=== PATIENT | male | born 1970 | race Two or more races ===

== ENCOUNTER 2019-12-25 09:38 | Day surgery (SDC) | payer OTHER ==
--- NOTE | 2019-12-20 16:59 | Diagnostic Imaging Report ---
Indication: Cough Technique: 2 views of the chest Comparison: None Findings: Lungs and pleural spaces are clear. The heart size is normal. There are mild degenerative changes of the thoracic spine. No significant interim change. Impression: Negative
[~2019-12-25] VITALS: Ht 180.3 cm; Wt 121.1 kg
[2019-12-25] VITALS (11 sets, daily range): BP systolic 99–117; BP diastolic 50–68
--- NOTE | 2019-12-25 06:55 | Pre-Procedure Note/Attestation ---
Pre-Procedure Note/Attestation Complete Prior to Procedure Planned Procedure: right Procedure Narrative: rt knee scope, medial meniscectomy and chondroplasty Indications for Procedure Pre-Operative Diagnosis: rt knee medial meniscus tear Attestation I attest that I discussed the nature of the procedure; its benefits; risks and complications; and alternatives (and the risks and benefits of such alternatives ), prior to the procedure, with the patient (or the patient's legal outside sales representative insurance). I attest that, if there was a reasonable possibility of needing a blood transfusion, the patient (or the patient's legal outside sales representative insurance) was given the [facility] standardized written summary, pursuant to the Swapnil Patricia Blood Safety Act ([place] Health and Safety Code # 1645, as amended). I attest that I re-evaluated the patient just prior to the surgery and that there has been no change in the patient's H&P, except as documented below: none Kenneth Pyle MD Dec 25, 2019 06:55
[~2019-12-25 09:38] MED LIST: Clindamycin 600mg/D5W 50ml IV ONE; celeBREX 200mg Cap **SURGERY PATIENTS ONLY ORAL ONE; oxyCONTIN 20mg tab ORAL ONE
[2019-12-25] MEDS ORDERED: oxyCONTIN 20mg tab ORAL ONE (10:27)
[2019-12-25] MEDS ORDERED: celeBREX 200mg Cap **SURGERY PATIENTS ONLY ORAL ONE (10:27)
[2019-12-25] MEDS ORDERED: HYDROmorphone 1mg/ml Carpuject SUBQ PRN (10:45)
[2019-12-25] MEDS ORDERED: Tylenol #3 tab (300mg/30mg) ORAL PRN (10:45)
[2019-12-25] MEDS ORDERED: D5 1/2NS 1,000 ML IV SCH (10:45)
[2019-12-25] MEDS ORDERED: HYDROcodone/Acetamin 5/325 tab ORAL PRN ×2 (10:45→11:45)
[2019-12-25] MEDS ORDERED: METFORMIN HCL1000 M1 ORAL (11:09)
[2019-12-25] MEDS ORDERED: ATORVASTATIN CA40 MG ORAL (11:12)
[2019-12-25] MEDS ORDERED: LISINOPRIL40 MG ORAL (11:20)
[2019-12-25] MEDS ORDERED: fenofibrate PO (11:22)
[2019-12-25] MEDS ORDERED: Jardiance PO (11:23)
[2019-12-25] MEDS ORDERED: FISH OIL CAP1000 MG ORAL (11:24)
[2019-12-25] MEDS ORDERED: ASPIR 8181 MG ORAL (11:24)
[2019-12-25] MEDS ORDERED: Bupivacaine w/Epi 0.5% 30ml Vial INJ ONE (11:28)
[2019-12-25] MEDS ORDERED: LR 1000ml ONE (11:30)
[2019-12-25] MEDS ORDERED: Sterile Water Irrig 1000ml IRRIG ONE (11:30)
[2019-12-25] MEDS ORDERED: LR 1000ml 1,000 ML IVLG SCH (11:35)
--- NOTE | 2019-12-25 11:36 | Anethesia Preoperative Eval ---
Anesthesia Pre-op PMH/ROS General Date of Evaluation: Dec 25, 2019 Time of Evaluation: 11:37 Anesthesiologist: Shailesh ASA Score: ASA 3 Mallampati Score Class I : Soft palate, uvula, fauces, pillars visible Class II: Soft palate, uvula, fauces visible Class III: Soft palate, base of uvula visible Class IV: Only hard plate visible Mallampati Classification: Class II Surgeon: Lashanda Diagnosis: R Knee Pain Surgical Procedure: R Knee Arthroscopy Family History: no anesthesia problems Allergies: Coded Allergies: No Known Allergies (Unverified , 12/20/19) Medications: see eMAR Patient NPO?: Yes Past Medical History Cardiovascular: Reports: HTN, other Endocrine: Reports: DM Other: obesity - BMI 39 PSxH Narrative: L Knee Arthroscopy, Cervical and Lumbar Fusion Sxs Anesthesia Pre-op Phys. Exam Physician Exam Last Vital Signs Date Time Temp Pulse Resp B/P (MAP) Pulse Ox O2 Delivery O2 Flow Rate FiO2 12/25/19 10:59 Room Air 12/25/19 10:51 97.2 66 20 117/65 99 Constitutional: NAD Neurologic: CN 2-12 intact Cardiovascular: RRR Respiratory: CTA Gastrointestinal: S/NT/ND Airway Exam Mallampati Score: Class II MO: full ROM: limited Teeth: intact Anesthesia Pre-op A/P Risk Assessment & Plan Assessment: ASA 3 Plan: GA, SED Status Change Before Surgery: No Pre-Antibiotics Dru Grams Ancef IV Given Within 1 Hr of Incision: Yes Time Given: 11:46 Dimas Cash MD Dec 25, 2019 11:36
[2019-12-25] MEDS ORDERED: Sodium Chloride 10ml vial INJ ONE (11:37)
[2019-12-25] MEDS ORDERED: Propofol 200mg/20ml IV ONE (11:37)
[2019-12-25] MEDS ORDERED: Lidocaine 1% MPF 10mg/ml 5ml ONE (11:37)
[2019-12-25] MEDS ORDERED: oxyCODONE HCL/Acetaminophen 5/325mg ORAL PRN (11:45)
[2019-12-25] MEDS ORDERED: Metoclopramide 10mg/2ml Inj IVP PRN (11:45)
[2019-12-25] MEDS ORDERED: LORazepam Inj 2mg/ml 1ml IV PRN (11:45)
[2019-12-25] MEDS ORDERED: Midazolam 2mg/2ml Inj IVP PRN (11:45)
[2019-12-25] MEDS ORDERED: fentaNYL 100 mcg/2 mL IV PRN (11:45)
[2019-12-25] MEDS ORDERED: Meperidine 25mg/0.5ml Inj (FOR RIGORS ONLY) IV PRN (11:45)
[2019-12-25] MEDS ORDERED: HYDROcodone/Acetamin 7.5/325 tab ORAL PRN (11:45)
[2019-12-25] MEDS ORDERED: Hydromorphone 0.5mg/0.5ml inj IVP PRN (11:45)
[2019-12-25] MEDS ORDERED: Ketorolac 30mg Inj IV PRN ×2 (11:45)
[2019-12-25] MEDS ORDERED: Atropine Sulfate 0.4mg/ml inj IVP PRN (11:45)
[2019-12-25] MEDS ORDERED: Acetaminophen (Non formulary) 100 ML IV ONE (11:45)
[2019-12-25] MEDS ORDERED: DiphenhydrAMINE 50mg/ml Inj IVP PRN (11:45)
[2019-12-25] MEDS ORDERED: Labetalol 5mg/ml 20ml vial IV PRN (11:45)
[2019-12-25] MEDS ORDERED: NS Irrig 4000ml IRRIG ONE ×3 (12:08→12:19)
--- NOTE | 2019-12-25 12:09 | Immediate Post-Op Evaluation ---
Immediate Post-Op Evalulation Immediate Post-Op Evalulation Procedure: R Knee Arthroscopy Date of Evaluation: Dec 25, 2019 Time of Evaluation: 12:58 IV Fluids: 600 LR Blood Products: 0 Estimated Blood Loss: 7 Urinary Output: 0 Blood Pressure Systolic: 109 Blood Pressure Diastolic: 61 Pulse Rate: 68 Respiratory Rate: 16 O2 Sat by Pulse Oximetry: 99 Temperature (Fahrenheit): 97.4 Pain Score (1-10): 2 Nausea: No Vomiting: No Complications 0 Patient Status: awake, reacts, patent, none Hydration Status: adequate Dru Gram Ancef IV Given Within 1 Hr of Incision: Yes Time Given: 11:46 Dimas Cash MD Dec 25, 2019 12:09
--- NOTE | 2019-12-25 12:10 | 48 Hour Post Anesthesia Eval ---
Post Anesthesia Evaluation Procedure: R Knee Arthroscopy Date of Evaluation: Dec 25, 2019 Time of Evaluation: 15:23 Blood Pressure Systolic: 111 0: 61 Pulse Rate: 67 Respiratory Rate: 18 Temperature (Fahrenheit): 98 O2 Sat by Pulse Oximetry: 99 Airway: patent Nausea: No Vomiting: No Pain Intensity: 2 Hydration Status: adequate Cardiopulmonary Status: Stable Mental Status/LOC: patient returned to baseline Follow-up Care/Observations: 0 Post-Anesthesia Complications: 0 Follow-up care needed: ready to discharge Dimas Cash MD Dec 25, 2019 12:10
--- NOTE | 2019-12-25 12:37 | Brief Operative Note ---
Immediate Post Operative Note Operative Note Chief Complaint: rt knee pain Pre-op Diagnosis: rt knee medial meniscus tear Procedure: rt knee scope, lateral and medial meniscectomy Post-op Diagnosis: same as pre-op Findings: consistent w/pre-op dx studies Surgeon: md shaniqua Head Of Maintenance: karine guy Anesthesiologist: md lacy Anesthesia: general Specimen: none Complications: none Condition: stable Fluids: ns Estimated Blood Loss: minimal Drains: none Implant(s) used?: No Kenneth Pyle MD Dec 25, 2019 12:37
--- NOTE | 2019-12-25 17:15 | Operative Note - Dictated ---
DATE OF OPERATION: 12/25/2019 PREOPERATIVE DIAGNOSIS: Right knee posterior horn medial meniscus tear. POSTOPERATIVE DIAGNOSES: 1. Right knee free edge tear of the lateral meniscus involving 15% of the posterior horn body lateral meniscus. 2. Right knee complex tear of the posterior horn body of the medial meniscus involving 25% of the medial meniscus. 3. Right knee small area of chondral damage with chondral flap over the medial femoral condyle measuring 5 x 8 mm. PROCEDURE: 1. Right knee arthroscopy and extensive intra-articular shaving. 2. Right knee partial lateral meniscectomy involving 15% of the posterior horn body of the lateral meniscus. 3. Right knee partial medial meniscectomy involving 25% of the posterior horn body of the medial meniscus. 4. Right knee medial femoral chondroplasty. SURGEON: Kenneth Pyle M.D. GRANITE BLOCK PAVER: Osiris Alford PA-C. Enterprise Data Architect was present during the actual operative portion of the case and was important and essential part of the operation. During the operation, the oral surgery assistant held and operated the arthroscopic camera for visualization, assisted by manipulating the leg to help with visualization, and helped with essential parts of the repair process as necessary such as operating surgical instruments under surgeon supervision, suture management, and wound closures. ANESTHESIOLOGIST: Dimas Cash M.D. ANESTHESIA: General LMA anesthesia. TOURNIQUET TIME: 25 minutes. EBL: Minimal. COMPLICATIONS: None. SURGICAL INDICATION: The patient is a 49-year-old male, who sustained the above injury to his knee. The patient was treated non-operative initially, but this did not alleviate the patients symptoms. Therefore, after discussing all non-surgical and surgical options, and discussing all foreseeable risk and benefits of surgery, the patient opted for surgical treatment as described above. PATIENT POSITIONING: Patient was brought to the operating room table and placed supine. All pressure points were well padded. General Anesthesia was induced and a well padded tourniquet was placed on the thigh. The lateral post was placed and positioned to allow for opening of the medial compartment of the knee without placing pressure over the fibular head. Patients entire leg was prepped and draped in the usual sterile fashion. Time-out was performed and preop abx was given and after exsanguinating the lower extremity, the tourniquet was inflated to 275 mm of mercury. EXAMINATION OF THE KNEE UNDER ANESTHESIA: Before prepping and draping the knee and while the patient was relaxed under general anesthesia, the knee was examined for ROM, and anterior and posterior, medial and lateral, posterolateral, and posteromedial instability. Pivot shift testing was performed. There was no evidence of loss of motion or instability and the pivot shift testing was negative. PORTAL PLACEMENT: The lateral portal was placed with the knee flexed to 90 degrees at the level of inferior border of the patella in line with the lateral border of the patella. A cm skin incision was made with an eleven blade, and using a blunt obturator, the capsule was gently penetrated. Sterile saline solution was then infused inside the knee with the aid of a pump set at 35 mm mercury pressure. Under direct visualization, placement of the medial portal was preliminary judged using a spinal needle, and it was subsequently established using the same technique as the lateral portal. Care was given not to injure the cutaneous branches of the medial Saphenous nerve or the subcutaneous veins. DIAGNOSTIC ARTHROSCOPY: The suprapatellar patellar pouch was visualized. There was no evidence of scar tissue or loose fragments. The medial and lateral patellar facets and trochlear groove articular cartilage was visualized. These structures were intact and were devoid of any articular cartilage damage. The medial plica shelf and the corresponding medial femoral condyle articular cartilage were visualized. There was no significantly thickening of the medial plica shelf and there were no kissing? lesion over the medial femoral condyle. The lateral gutter and the posterolateral corner of the knee were visualized. There were no loose bodies, and the popliteus tendon and other structures of the posterolateral corner of the knee were intact intra-articularly. At this point, the knee was placed in the figure of four position and the lateral compartment was entered. The lateral femoral condyle, lateral tibial plateau, and the anterior, body, and the posterior horn of the lateral meniscus were visualized and probed. The articular surfaces were intact and devoid of articular cartilage damage. There was a free edge tear of the posterior horn and body lateral meniscus with some frayed meniscus at the periphery. This involve 15% of the lateral meniscus. The knee was then placed at 90 degree and the ACL and PCL were visualized and probed. The ACL was completely intact on visualization and probing, and it had excellent tension. The PCL was completely intact on visualization and probing and it had excellent tension. The medial compartment was then entered and the medial femoral condyle, medial tibial plateau, and the anterior, body, and the posterior horn of the medial meniscus were visualized and probed. There was a small condyle damage over the lateral portion of the medial femoral condyle in the weightbearing zone measuring 5 x 8 mm with unstable chondral flaps. There was a complex tear of the posterior horn and body of the medial meniscus involving 25% medial meniscus. The medial gutter was visualized. There was no evidence of defect or loose fragments. The scope was then brought back to the patella femoral compartment. OPERATIVE ARTHROSCOPY: At this point, all loose debris and fragments were removed with the use of suction motorized shaver. Specific attention was given to assure all visible loose fragments were irrigated out of the knee joint with pump inflow and cannula outflow system. For lateral meniscectomy: At this point, attention was given to the lateral meniscus. Using combination of baskets and roopa, the torn portion of the lateral meniscus was removed. Attention was given to remove all displaced and unstable portion of the lateral meniscus while maintaining as much of the functional portion of the meniscus as possible. Approximately, 15% of the posterior horn body of the meniscus was removed in this fashion. The transition between the meniscectomy portion and intact portion of the meniscus was smoothed out with combination of small baskets and roopa. Excellent transition zone was obtained in this fashion. For medial meniscectomy: At this point, attention was given to the medial meniscus. Using combination of baskets and roopa, the torn portion of the medial meniscus was removed. Attention was given to remove all displaced and unstable portion of the medial meniscus while maintaining as much of the functional portion of the meniscus as possible. Approximately, 25% of the posterior horn and body of the medial meniscus was removed in this fashion. The transition between the meniscectomy portion and intact portion of the meniscus was smoothed out with combination of small baskets and roopa. Excellent transition zone was obtained in this fashion. For medial compartment chondroplasty: Care was given to the area of cartilage damage in the medial compartment. The frayed and loose fragments of articular cartilage were debrided using a motorized shaver. Suction was used to pull in the loose fragments and flaps of the cartilage and to minimize damage to the intact and well attached portion of the cartilage. This allowed for smooth surfaces for the articular cartilage. CONDITION AT DISCHARGE FROM OPERATING ROOM: The knee was irrigated with copious amount of normal saline at the end of the procedure. The scope was removed and the water was drained. The skin edges were re-approximated and sterile dressing was applied. All lap count and instrument counts were correct. The patient tolerated the procedure well without complications and was taken to the recovery room in stable conditions. Kenneth Pyle M.D. DR: BONG JOB#: [id number] CC:
== END 2019-12-25 14:29 | disposition home or self-care (01) ==
LOC: SUR 09:38
DX: S83.241A Other tear of medial meniscus, current injury, right knee, initial encounter (principal); S83.281A Other tear of lateral meniscus, current injury, right knee, initial encounter; X58.XXXA Exposure to other specified factors, initial encounter; Y92.9 Unspecified place or not applicable; E11.9 Type 2 diabetes mellitus without complications; I10 Essential (primary) hypertension; Z98.1 Arthrodesis status; Z68.37 Body mass index [BMI] 37.0-37.9, adult
CPT/HCPCS: 29880; 71046; 82962; J0131; J0690; J1885; J2250; J2405; J2704; J3010; J7120; 94003; 94150

== ENCOUNTER 2020-09-23 06:59 | Inpatient (IN) | payer OTHER ==
[2020-09-23] VITALS (15 sets, daily range): BP systolic 96–135; BP diastolic 42–78
[~2020-09-23] VITALS: Ht 180.3 cm; Wt 113.4 kg
[~2020-09-23 06:59] MED LIST changes: +ASPIR 8181 MG ORAL; +ATORVASTATIN CA40 MG ORAL; -Clindamycin 600mg/D5W 50ml IV ONE; +FISH OIL CAP1000 MG ORAL; +Jardiance PO; +LISINOPRIL40 MG ORAL; +METFORMIN HCL1000 M1 ORAL; +NAPROXEN500 M2 ORAL; +TRAZODONE HCL300 MG ORAL; -celeBREX 200mg Cap **SURGERY PATIENTS ONLY ORAL ONE; +fenofibrate PO; -oxyCONTIN 20mg tab ORAL ONE
[2020-09-23] MEDS ORDERED: ceFAZolin sod 1 GM in NS 55 ML IVPB ONE (07:00)
[2020-09-23] MEDS ORDERED: ePHEDrine 50mg/ml Inj ONE (07:33)
[2020-09-23] MEDS ORDERED: Sodium Chloride 10ml vial INJ ONE ×2 (07:33→10:38)
[2020-09-23] MEDS ORDERED: Rocuronium Bromide 50mg/5ml Inj IV ONE ×2 (08:11→10:44)
[2020-09-23] MEDS ORDERED: Succinylcholine 20mg/ml 10ml vial ONE ×2 (08:11→10:44)
[2020-09-23] MEDS ORDERED: propofoL 1,000mg/100ml IV ONE (08:30)
[2020-09-23] MEDS ORDERED: LR 1000ml ONE (08:30)
[2020-09-23] MEDS ORDERED: Sterile Water Irrig 1000ml IRRIG ONE (08:30)
[2020-09-23] MEDS ORDERED: NS Irrig 3000ml IRRIG ONE (08:30)
[2020-09-23] MEDS ORDERED: EPINEPHrine 1mg/1ml Amp ONE (08:45)
[2020-09-23] MEDS ORDERED: Midazolam 2mg/2ml Inj ONE (08:46)
[2020-09-23] MEDS ORDERED: fentaNYL 100 mcg/2 mL IV ONE ×2 (08:46→16:54)
[2020-09-23] MEDS ORDERED: Thrombin 5000 units TOPIC ONE (08:46)
[2020-09-23] MEDS ORDERED: Bupivacaine 0.5% Inj 30 ml vial INJ ONE (08:47)
[2020-09-23] MEDS ORDERED: Bacitracin 50000 Units Vial ONE ×2 (08:47→17:19)
[2020-09-23] MEDS ORDERED: Lidocaine 1%/ 10mg/ml/EPI 0.01mg/ml 20ml INJ ONE (08:47)
[2020-09-23] MEDS ORDERED: Gelfoam Size TOPIC ONE ×2 (08:47→09:10)
[2020-09-23] MEDS ORDERED: Lidocaine 1% MPF 10mg/ml 5ml ONE (08:47)
[2020-09-23] MEDS ORDERED: Vancomycin 1gm vial IVPB ONE (08:48)
[2020-09-23] MEDS ORDERED: Heparin 5000 units/ml inj ONE (08:48)
[2020-09-23] MEDS ORDERED: Ropivacaine 5mg/ml Vial 30ml INJ ONE (09:10)
--- NOTE | 2020-09-23 09:37 | Pre-Procedure Note/Attestation ---
Pre-Procedure Note/Attestation Complete Prior to Procedure Procedure Narrative: L3-4-5-S1 Ant post fusion with redo decompression Indications for Procedure Pre-Operative Diagnosis: L3-S1 discopathy, deformity and stenosis Attestation I attest that I discussed the nature of the procedure; its benefits; risks and complications; and alternatives (and the risks and benefits of such alternatives), prior to the procedure, with the patient (or the patient's legal jewelry sales representative). I attest that, if there was a reasonable possibility of needing a blood transfusion, the patient (or the patient's legal jewelry sales representative) was given the [facility] standardized written summary, pursuant to the Swapnil Patricia Blood Safety Act ([place] Health and Safety Code # 1645, as amended). I attest that I re-evaluated the patient just prior to the surgery and that there has been no change in the patient's H&P, except as documented below: Hao Greene MD Sep 23, 2020 09:37
[2020-09-23] MEDS ORDERED: Acetaminophen (Non formulary) 100 ML IV ONE (10:30)
--- NOTE | 2020-09-23 10:34 | Anethesia Preoperative Eval ---
Anesthesia Pre-op PMH/ROS General Date of Evaluation: Sep 23, 2020 Time of Evaluation: 08:50 Anesthesiologist: Antonio ASA Score: ASA 3 Mallampati Score Class I : Soft palate, uvula, fauces, pillars visible Class II: Soft palate, uvula, fauces visible Class III: Soft palate, base of uvula visible Class IV: Only hard plate visible Mallampati Classification: Class II Surgeon: Ramona Diagnosis: Lumbar radiculopathy Surgical Procedure: Anterior and posterior discectomy fusion L3 to S1 Anesthesia History: none Family History: no anesthesia problems Allergies: Coded Allergies: No Known Allergies (Unverified , 12/20/19) Medications: see eMAR Patient NPO?: Yes Past Medical History Cardiovascular: Reports: HTN; Denies: CAD, LA, valve dz, arrhythmia, other Pulmonary: Denies: asthma, COPD, MARIA DE JESUS, other Gastrointestinal/Genitourinary: Reports: GERD; Denies: CRI, ESRD, other Neurologic/Psychiatric: Reports: depression/anxiety, other - chronic pain; Denies: dementia, CVA, TIA Endocrine: Reports: DM - stable on pills; Denies: hypothyroidism, steroids, other HEENT: Denies: cataract (L), cataract (R), glaucoma, MINTO (L), MINTO (R), other Hematology/Immune: Denies: anemia, DVT, bleeding disorder, other Musculoskeletal/Integumentary: Denies: OA, RA, DJD, DDD, edema, other Other: obesity PMH Narrative: as above PSxH Narrative: Lumbar laminectomy cervical spine fusion Anesthesia Pre-op Phys. Exam Physician Exam Last Vital Signs Date Time Temp Pulse Resp B/P (MAP) Pulse Ox O2 Delivery O2 Flow Rate FiO2 09/23/20 08:08 98.2 67 18 108/71 (83) 96 Constitutional: NAD Neurologic: CN 2-12 intact Cardiovascular: RRR, no M/R/G Respiratory: CTA Gastrointestinal: S/NT/ND Airway Exam Mallampati Score: Class III MO: limited Neck: stiff ROM: limited Teeth: intact Dentures: no upper, no lower Anesthesia Pre-op A/P Labs Chemistry Test 09/23/20 08:22 POC Whole Blood Glucose 110 MG/DL (74-106) H Studies Pre-op Studies: EKG - NSR Risk Assessment & Plan Assessment: ASA 3 Plan: GA with ETT, supine and prone position, neuromonitoring Status Change Before Surgery: No Pre-Antibiotics Drug: Ancef 2gr Given Within 1 Hr of Incision: Yes Time Given: 10:02 Krunal Alvarez MD Sep 23, 2020 10:34
[2020-09-23] MEDS ORDERED: Morphine Sulfate 10mg/ml Inj ONE (10:38)
[2020-09-23] MEDS ORDERED: Hydromorphone 0.5mg/0.5ml inj IVP PRN ×2 (11:45→16:45)
[2020-09-23] MEDS ORDERED: Chloraseptic Spray 20mL Bottle ORAL PRN (11:45)
[2020-09-23] MEDS ORDERED: Neostigmine 1mg/ml 10ml Inj ONE (14:15)
[2020-09-23] MEDS ORDERED: Glycopyrrolate 0.2mg/ml 1ml Vial ONE (14:15)
[2020-09-23] MEDS ORDERED: Ketorolac 30mg Inj ONE (14:18)
--- NOTE | 2020-09-23 14:42 | NUR ---
CASE MANAGEMENT: REVIEW 50 YEAR OLD MALE ADMITTED TO SAME DAY SURGERY CC: PAIN . PSxHx LUMBAR LAMINECTOMY CERVICAL SPINE FUSION L3-S1 DISCOPATHY . DEFORMITY AND STENOSIS ANTERIOR AND POSTERIOR DISCECTOMY FUSION L3 TO S1 09/23 T 98.2 HR 67 RR18 BP 108/71 SAT 96% ROOM AIR WHOLE BLOOD GLUCOSE 110 IS: CEFAZOLIN IV X1 EPHEDRINE X1 MAG SULFATE X1 FENTANYL IV X1 HEPARIN X1 VANCOMYCIN IV X1 PATIENT ADMITTED TO SAME DAY SURGERY 09/23/2020 DCP: PATIENT IS FROM HOME
[2020-09-23] MEDS ORDERED: Midazolam 2mg/2ml Inj IVP PRN (16:45)
[2020-09-23] MEDS ORDERED: DiphenhydrAMINE 50mg/ml Inj IVP PRN (16:45)
[2020-09-23] MEDS ORDERED: Meperidine 25mg/1ml Inj (FOR RIGORS ONLY) IV PRN (16:45)
[2020-09-23] MEDS ORDERED: LR 1000ml 1,000 ML IVLG SCH (16:45)
--- NOTE | 2020-09-23 19:17 | Brief Operative Note ---
Immediate Post Operative Note Operative Note Pre-op Diagnosis: L3-S1 discopathy, deformity and stenosis Procedure: Ant Post Fusion L3-S1 with L5s1 redo decompression Post-op Diagnosis: same as pre-op Findings: consistent w/pre-op dx studies Surgeon: lora Ditching Machine Operating Engineer: Imelda GARCIA Additional Surgeons: [facility] Anesthesiologist: daniel Anesthesia: general Specimen: none Complications: none Condition: stable Fluids: 2L Estimated Blood Loss: minimal - 250 Drains: hemovac Implant(s) used?: Yes - 4 web cage anterior, fang plate ant, Post thunderbolt screws choi spine Hao Greene MD Sep 23, 2020 19:17
--- NOTE | 2020-09-23 20:03 | Immediate Post-Op Evaluation ---
Immediate Post-Op Evalulation Immediate Post-Op Evalulation Procedure: Anterior L3to S1 discectomy fusion with posterior L3 to S1 fusion and deco Date of Evaluation: Sep 23, 2020 Time of Evaluation: 20:02 IV Fluids: 2200 Blood Products: none Estimated Blood Loss: 250 Urinary Output: 800 Blood Pressure Systolic: 102 Blood Pressure Diastolic: 56 Pulse Rate: 118 Respiratory Rate: 22 O2 Sat by Pulse Oximetry: 99 Temperature (Fahrenheit): 98.6 Pain Score (1-10): 2 Nausea: No Vomiting: No Complications none Patient Status: reacts, patent, extubated, none Hydration Status: adequate Krunal Alvarez MD Sep 23, 2020 20:03
--- NOTE | 2020-09-23 20:29 | Operative Note - Dictated ---
DATE OF OPERATION: 09/23/2020 PREOPERATIVE DIAGNOSIS: Spinal deformity, status post L3 through L5 decompression with discopathy L3 through S1. POSTOPERATIVE DIAGNOSIS: Spinal deformity, status post L3 through L5 decompression with discopathy L3 through S1. PROCEDURE: 1. Wide and radical diskectomy through an anterior approach, L3-4, L4-5, L5-S1. 2. Interbody fusion using 4 WEB structural cage, L3-4, L4-5, L5-S1. 3. Use of local autograft. 4. Use of Signafuse bone graft substitute. 5. Anterior instrumentation with Fang plate at L3, L4, S1. 6. Use of fluoroscopy. SURGEON: Hao Greene MD. VASCULAR ACCESS SURGEON: Hung Hylton MD. WANT AD SUPERVISOR: Chuck Mao PA-C. ANESTHESIOLOGIST: Krunal Alvarez MD. ANESTHESIA TYPE: General endotracheal anesthesia. COMPLICATIONS: None. INDICATIONS: The patient is a very pleasant gentleman with long-standing history of problems with regards to his back, status post prior decompression L3, L4, L5. He had developed a deformity at L3-L4 and L4-L5, with lateral listhesis and asymmetric diskogenic collapse with acquired scoliosis, severe spinal stenosis L5-S1. Pros, cons, risks and benefits of surgery were discussed. He elected to proceed with spinal fusion, anterior posterior at the affected levels. RISK NOTE: The patient was explained in detail risks and benefits of surgery to include, but not be limited to those of bleeding, infection, damage to nerves, vessels, tendons, anesthetic risk, allergic reaction, aspiration, possibly . The patient understood and wished to proceed. OPERATIVE PROCEDURE IN DETAIL: The patient was taken to the operative suite. After general endotracheal anesthesia was obtained, Chisholm catheter was placed. The patient was positioned supine onto a radiolucent table. Abdomen was prepped and draped in usual sterile fashion. Retroperitoneal approach was performed from L3 through S1 by Dr. Hylton and will be dictated separately. At this point, the self-retaining retractors were in place and the L5-S1 level was exposed. An anterior incision using a 10 blade was used to perform anterior annulotomy. The disk was then removed with cartilaginous endplate removal. A bullet-tip interbody distractors were used to obtain mobilization of the disk height and removal of disk material all the way to the posterior longitudinal ligament. Posterior anulus was removed at the L5-S1 level. Anterior osteophytes were removed. The appropriate trial was put into place and the appropriate sized 10 mm high, 6 degrees lordotic large footprint cage was chosen. It was centrally packed with Signafuse and inserted to the L5-S1 level. At this point, a Fang plate was inserted at the S1 level buttressing the interbody device at L5-S1. At this point, attention was then turned to the L4-L5 level. Retractors were removed to expose the L4-L5 level and in an identical fashion L4-5 anterior interbody fusion was performed identical to L5-S1. Plating was placed at L4. At this point, once satisfied with this, in an identical fashion we then extended it to the L3-4 level in an identical fashion wide and radical diskectomy, decompression and removal of osteophytes was performed. Fluoroscopy was used throughout the procedure to assess correction of the deformity as well as placement of interbody devices and plating. Once satisfied and final implants were placed, decision was made to close and this will be dictated separately by Dr. Hung Hylton. Sponge and needle counts were correct. Hao Greene M.D. DR: NILDA JOB#: [id number] CC:
--- NOTE | 2020-09-23 20:57 | NUR ---
NURSE NOTES: Received telephone report from NETO Sorto. Pt will be brought up soon. Pt's room 314 is ready.
--- NOTE | 2020-09-23 21:00 | Operative Note - Dictated ---
DATE OF OPERATION: 09/23/2020 SURGEON: Hung Hylton MD VASCULAR SURGEON: Hung Hylton MD SPINE SURGEON: Hao Greene MD PREOPERATIVE DIAGNOSIS: Lumbar pain. POSTOPERATIVE DIAGNOSIS: Lumbar pain. PROCEDURES PERFORMED: 1. Anterior retroperitoneal exposure, L3-L4 vertebral interspace, left retroperitoneal approach. 2. Anterior retroperitoneal exposure, L4-L5 vertebral interspace, left retroperitoneal approach. 3. Anterior retroperitoneal exposure, L5-S1 vertebral interspace, left retroperitoneal approach. INDICATIONS: The patient is a very pleasant gentleman who was seen prior to surgery. He has been scheduled for anterior spine operation from L3 down to S1. He has no prior anterior spine surgery. Denies history of deep venous thrombosis or bleeding complications. He was made aware of the risks of vascular surgery including vascular injury, possible need for blood transfusion, and deep venous thrombosis. DESCRIPTION OF FINDINGS: A vertical midline incision was used. A left retroperitoneal approach was used. There was no peritoneal or ureteral violation. Exposure of L5-S1 was obtained below the iliac bifurcation. The left iliac vein and artery were draped over L5-S1 and required extensive bone mobilization to get safe exposure. L4-L5 and L3-L4 obtained above the iliac bifurcation and once again confirmed via fluoroscopy. On completion, the peritoneum and ureter intact. Iliac vessels intact. BLOOD LOSS: Approximately 100 to 150 mL COMPLICATIONS: None. DESCRIPTION OF PROCEDURE: The patient was taken to the operative room. General anesthesia was used. IV antibiotics were given. The patient's abdomen was prepped and draped. Appropriate time-out procedure was taken. A vertical midline incision was made infraumbilically to an extension on the left side of the umbilicus. The anterior fascia was divided longitudinally in the midline. A plane was identified posterior to the left rectus abdominis developed posterolaterally toward the patient's left. Retroperitoneal space was entered below the arcuate line. Peritoneum and ureter mobilized toward the patient's right exposing the left common iliac artery and vein. Initial dissection carried inferior to the left common iliac vein. The middle sacral artery and vein were ligated with vascular clips and divided and then the left iliac vein was mobilized superior and laterally and the Omni retractor blades were set in place. Fluoroscopy was used to confirm the appropriate level. Instrumentation was performed at L5-S1 as dictated separately. The retractors were then repositioned above the iliac bifurcation. Dissection was carried lateral to the left common iliac artery and vein overlying the fascia and ligated with vascular clips. The iliolumbar vein was identified and ligated proximally with 2-0 silk tie and ligated proximally and distally with vascular clips and divided and then L4 segmental artery and vein as well as the L3 segmental artery and veins were identified and ligated with vascular clips and divided. This allowed us to bluntly mobilize the IVC and the aorta and proximal left common iliac artery and vein towards the patient's right and placed the Omni retractors. Fluoroscopy was used to confirm L3-L4 and L4-L5. Instrumentation was then performed at these levels as dictated separately. On completion, retractor was gently removed. Peritoneum and ureter were intact. Iliac vessels were intact. Anterior fascia was then closed using #1 PDS in a running fashion, and the skin and subcutaneous tissue were closed with 3-0 Vicryl and 4-0 Monocryl running subcuticular closure technique. ESTIMATED BLOOD LOSS: 100 to 150 mL. COMPLICATIONS: None. Hung Hylton M.D. DR: Jenn JOB#: [id number] CC:
[2020-09-23 21:03] LABS: BASOPHILS % (AUTO) 0.3 % (0.0-2.0); HEMATOCRIT 38.2 % (42.0-52.0); HEMOGLOBIN 12.6 G/DL (14.2-18.0); LYMPHOCYTES % (AUTO) 7.4 % (20.0-45.0); MEAN CORPUSCULAR VOLUME 90 FL (80-99); MONOCYTES % (AUTO) 8.1 % (1.0-10.0); NEUTROPHILS % (AUTO) 84.1 % (45.0-75.0); PLATELET COUNT 278 K/UL (150-450); RED BLOOD COUNT 4.23 M/UL (4.70-6.10); RED CELL DISTRIBUTION WIDTH 14.2 % (11.6-14.8); WHITE BLOOD COUNT 16.1 K/UL (4.8-10.8)
--- NOTE | 2020-09-23 21:10 | NUR ---
NURSE NOTES: Received pt from [facility] Sort[facility]. Pt in bed,a&ox4, on O2 via NC @ 3 LPM. No s/s of acute distress, c/o pain; will give pain med once ER registers pt since pt not showing up in pyxis; will f/u. Chisholm intact & draining yellow urine output to gravity. Hemovac noted. Anterior dressing C/D/I with little stain. Posterior dressing C/D/I. Applied ice pack to both sides. IV site intact with IVF running as ordered. Belongings checked & accounted for. Only cellphone for now; the rest of belongings were in outpatient & they're already closed per [facility] Sort[facility]. Will endorse to AM shift to pickup pt belongings tomorrow once they open. Plan of care discussed. Addendum: 09/23/20 at 2200 by Terese Lacy RN back brace at bed side, brought by . at bedside.
--- NOTE | 2020-09-23 21:30 | Operative Note - Dictated ---
DATE OF OPERATION: 09/23/2020 SURGEON: Hao Greene MD INFANTRY ASSAULTMAN: Chuck Mao PA-C ANESTHESIA: Krunal Alvarez MD ANESTHESIA TYPE: General endotracheal anesthesia. PREOPERATIVE DIAGNOSIS: Status post L3 through L5 laminectomy with spinal deformity and residual stenosis at L5-S1. POSTOPERATIVE DIAGNOSES: 1. Status post L3 through L5 laminectomy with spinal deformity and residual stenosis at L5-S1. 2. Status post anterior lumbar interbody fusion. OPERATION PERFORMED: 1. Segmental instrumentation using Choice spine cannulated pedicle screws at L3, L4, L5, S1 bilaterally. 2. Posterior spinal fusion, L3-L4, L4-L5, L5-S1. 3. Redo laminectomy, bilateral L5, and S1. 4. Neurolysis L5-S1. 5. Posterior lateral spinal fusion/facet fusion L3-L4, L4-L5, L5-S1 using autograft as well as Signafuse bone graft substitute. 6. Pedicle screw stimulation. 7. Use of fluoroscopy. 8. Use of operating microscope. ESTIMATED BLOOD LOSS: Total for both anterior and posterior procedures 250 mL centimeters. FLUIDS: For both anterior and posterior procedures 2 liters. INDICATIONS: Mr. Greer is a very pleasant gentleman with fairly intractable and long-term mechanical back pain with radiculopathy both lower extremities, left worse than right. Surgical treatment options were discussed ranging from decompression alone to spinal fusion with decompression. Due to the patient's height, weight, body mass index, as well as the progressive nature of his deformity, surgical intervention in the form of anterior-posterior fusion L3 through S1 was discussed and the patient elected to proceed. Correction of the deformity was achieved. RISK NOTE: The patient was explained in detail risks, benefits of surgery to include, but not be limited to those of bleeding, infection, damage to nerves, vessels, tendons, anesthetic risk, allergic reaction, aspiration, possibly . OPERATIVE PROCEDURE IN DETAIL: Under benefits of general anesthesia, patient was positioned prone onto a Reginaldo frame. The back was prepped and draped in the usual sterile fashion. The previous incision was marked out and it was extended both cephalad and caudad after the skin was infiltrated with Marcaine with epinephrine. Dissection was carried down through subcutaneous. Extensive scarred and altered anatomy was encountered due to prior surgery and midline decompression L3 through L5. At this point, the spinous process of L5-S1 was identified as well as the spinous process of the leading edge of L3. At this point, dissection was carried out to the facet joint at L3-L4, L4-L5, L5-S1. L3-L4 and L4-L5 facet joints as well as L5-S1 was markedly degenerated. Surprisingly also the L2-L3 facet was markedly degenerated. Care was taken to avoid injury to the facet capsule at L2-L3. The dissection was carried out to the transverse processes of L3, L4, L5, and S1. At this point, using both anatomic and fluoroscopic landmarks, pedicle screws were placed. Systematically by drilling, probing, tapping, sounding of the pedicles to assure no cortical breach and ultimately tapping and placing the appropriate sized screws bilaterally at L3, L4, L5, S1. This was first performed on the right side and subsequently on the left side and verified fluoroscopically. Pedicle screw stimulation demonstrated impedance above 20 milliamps at every screw. At this point, the appropriate size, pre bent rods were then applied and additional correction of the deformity was achieved. All locking caps were torqued to the appropriate level. 2 liters of pulsatile lavage irrigation was then performed with antibiotic solution. At this point, operating microscope was brought in place and decompression with complete laminectomy of L5 bilaterally and superior one-half of S1 was performed. Please note that extensive scarring was encountered at the L5-S1 level due to prior surgery at this adjacent levels. Extensive scarring around the nerve roots were encountered and copious decompression and neurolysis was achieved using meticulous micro technique. At this point, FloSeal was applied to the lateral gutters. Meticulous hemostasis was obtained. The facet joints were then all drilled at L3-L4, L4-L5, and L5-S1 bilaterally. Extensive amount of local autograft bone as well as remaining amount of Signafuse bone graft substitute was then inserted into the lateral gutters. Vancomycin powder was then applied deep to the fascia. A subfascial drain was applied. The fascia was closed using #1 Vicryl. Suprafascial vancomycin was applied after additional irrigation was performed. Subcutaneous closure using 2-0 Vicryl was achieved. Meticulous closure was noted. Dermabond was applied and sterile dressing was applied. At the time of this dictation, patient was awaiting extubation. Hao Emmanuelle Greene DR: GALEN JOB#: [id number] CC:
[2020-09-23] MEDS: D5 1/2NS 1,000 ML IV SCH (21:32)
[2020-09-23] MEDS: ceFAZolin sod 1 GM in D5W 55 ML IV SCH (21:32)
[2020-09-23] MEDS: HYDROmorphone 1mg/ml Carpuject SUBQ PRN (22:07)
[2020-09-23] MEDS: Tamsulosin 0.4mg cap ORAL SCH (22:07)
[2020-09-24] VITALS (9 sets, daily range): BP systolic 113–156; BP diastolic 69–83
[2020-09-24] MEDS: ceFAZolin sod 1 GM in D5W 55 ML IV SCH ×2 (01:02→10:09)
[2020-09-24] MEDS: HYDROmorphone 1mg/ml Carpuject SUBQ PRN ×5 (01:03→23:54)
[2020-09-24] MEDS: HYDROcodone/Acetamin 10/325 tab ORAL PRN ×3 (04:57→19:43)
[2020-09-24] MEDS: D5 1/2NS 1,000 ML IV SCH (06:02)
--- NOTE | 2020-09-24 06:54 | NUR ---
NURSE HAND-OFF: Important Events on Shift:post-op; pain management; back brace at bedside Patient Status: stable Diet: NPO except ice chips & PO meds Pending Orders: none Pending Results/Labs:none Pending MD notification:none Latest Vital Signs: Temperature 97.6 , Pulse 88 , B/P 156 /80 , Respiratory Rate 16 , O2 SAT 99 , Nasal Cannula, O2 Flow Rate 3 . Vital Sign Comment: none Latest [place]ara Fall Score: 35 Fall Risk: Medium Risk Safety Measures: Call light Within Reach, Bed Alarm , Side Rails Side Rails x2, Bed position Low and Locked. Fall Precautions: Patient Fall Education Report given to . Addendum: 09/24/20 at 0738 by Terese Lacy RN Report given to [facility] Rich. Pt's belongings from outpatient brought to patient. Checked & signed.
--- NOTE | 2020-09-24 07:15 | NUR ---
NURSE NOTES: Handoff received from Terese DUQUE. Patient is awake and alert, no signs of acute distress noted. LEft hand IV is intact and asymptomatic, running IVF as ordered. Hemovac on posterior surgery site noted. Anterior dressing is slightly stained.m Chisholm catheter is patent and draining to gravity. Bed is low and locked, side rails up x2, call light is within reach.
[2020-09-24 07:43] LABS: BASOPHILS % (AUTO) 0.4 % (0.0-2.0); HEMATOCRIT 41.4 % (42.0-52.0); HEMOGLOBIN 13.2 G/DL (14.2-18.0); LYMPHOCYTES % (AUTO) 11.5 % (20.0-45.0); MEAN CORPUSCULAR VOLUME 95 FL (80-99); NEUTROPHILS % (AUTO) 76.1 % (45.0-75.0); PLATELET COUNT 260 K/UL (150-450); RED BLOOD COUNT 4.38 M/UL (4.70-6.10); RED CELL DISTRIBUTION WIDTH 14.8 % (11.6-14.8); WHITE BLOOD COUNT 10.4 K/UL (4.8-10.8)
[2020-09-24 08:08] LABS: CALCIUM 8.7 MG/DL (8.5-10.1); CREATININE 1.4 MG/DL (0.55-1.30)
[2020-09-24] MEDS: Docusate 100mg cap ORAL SCH ×2 (08:49→18:09)
--- NOTE | 2020-09-24 09:30 | NUR ---
P.T Note: P.T evaluation completed and tx initiated per spinal protocol. See P.T evaluation for full report.
[2020-09-24] MEDS ORDERED: Tamsulosin 0.4mg cap ORAL SCH (11:00)
--- NOTE | 2020-09-24 11:00 | NUR ---
NURSE NOTES: Called Dr. Greene about patient's pain that is mostly in the left thigh, with some pain in the lower back and right thigh. Left callback number and awaiting call back.
--- NOTE | 2020-09-24 12:30 | NUR ---
NURSE NOTES: Spoke with Dr. Cuba in person about patient's pain that is concentrated in the left thigh, with some pain in the lower back and right thigh. I also informed Dr. Cuba that the patient is tachycardic with a pulse of 117.
--- NOTE | 2020-09-24 12:38 | Pain Management Progress Note ---
Allergies: Coded Allergies: No Known Allergies (Unverified , 12/20/19) Vitals Vital Signs Date Time Temp Pulse Resp B/P (MAP) Pulse Ox O2 Delivery O2 Flow Rate FiO2 09/24/20 11:46 97.6 09/24/20 09:19 97.6 Medications Current Medications Acetaminophen (Tylenol) 650 mg Q4H PRN ORAL mild pain; Start 09/23/20 at 19:15; Stop 10/23/20 at 19:14 Acetaminophen (Tylenol) 650 mg Q6H PRN ORAL fever; Start 09/23/20 at 11:45; Stop 10/23/20 at 11:44 Acetaminophen/ Butalbital/ Caffeine (Fioricet) 1 tab Q8H PRN ORAL headache; Start 09/23/20 at 11:45; Stop 10/23/20 at 11:44 Acetaminophen/ Hydrocodone Bitart ([place] 10/325) 1 tab Q3H PRN ORAL Pain Scale (3-5) Last administered on 09/24/20at 11:16; Start 09/23/20 at 11:45; Stop 09/30/20 at 11:44 Al Hydroxide/Mg Hydroxide (Mylanta) 30 ml Q6H PRN ORAL gerd; Start 09/23/20 at 11:45; Stop 10/23/20 at 11:44 Clonidine HCl (Catapres Tab) 0.1 mg Q8H PRN ORAL For High Blood Pressure; Start 09/23/20 at 11:45; Stop 12/22/20 at 11:44 Dextrose/Sodium Chloride 1,000 ml @ 150 mls/hr Q6H40M IV Last administered on 09/24/20at 06:02; Start 09/23/20 at 21:00; Stop 10/23/20 at 20:59 Diphenhydramine HCl (Benadryl) 25 mg Q6H PRN ORAL Itching; Start 09/23/20 at 11:45; Stop 10/23/20 at 11:44 Docusate Sodium (Colace) 100 mg TWICE A DAY ORAL Last administered on 09/24/20at 08:49; Start 09/24/20 at 09:00; Stop 10/24/20 at 08:59 Famotidine (Pepcid) 20 mg BID ORAL Last administered on 09/24/20at 08:49; Start 09/23/20 at 18:00; Stop 12/22/20 at 17:59 Hydromorphone HCl (Dilaudid) 0.5 mg Q3H PRN IVP Moderate Pain (Pain Scale 4-6); Start 09/23/20 at 11:45; Stop 09/30/20 at 11:44 Hydromorphone HCl (Dilaudid) 1 mg Q3H PRN SUBQ Severe Breakthru Pain (>7) Last administered on 09/24/20at 08:49; Start 09/23/20 at 11:45; Stop 09/30/20 at 11:44 Ondansetron HCl (Zofran) 4 mg Q4H PRN IVP Nausea & Vomiting; Start 09/23/20 at 11:45; Stop 10/23/20 at 11:44 Phenol/Menthol (Chloraseptic) 1 spray Q2HR PRN ORAL sore throat Last administered on 09/23/20at 21:33; Start 09/23/20 at 11:45; Stop 12/22/20 at 11:44 Prochlorperazine (Compazine) 10 mg Q6H PRN IVP Nausea & Vomiting; Start 09/23/20 at 19:15; Stop 10/23/20 at 19:14 Tamsulosin HCl (Flomax) 0.4 mg BEDTIME ORAL Last administered on 09/23/20at 22:07; Start 09/23/20 at 21:00; Stop 10/23/20 at 20:59 Temazepam (Restoril) 15 mg HSPRN PRN ORAL Insomnia; Start 09/23/20 at 19:15; Stop 09/30/20 at 19:14 Laboratory Laboratory Tests 09/23/20 19:58: POC Whole Blood Glucose [Pending] 09/23/20 20:58: White Blood Count 16.1H, Red Blood Count 4.23L, Hemoglobin 12.6L, Hematocrit 38.2L, Mean Corpuscular Volume 90, Mean Corpuscular Hemoglobin 29.8, Mean Corpuscular Hemoglobin Concent 33.0, Red Cell Distribution Width 14.2, Platelet Count 278, Mean Platelet Volume 6.5, Neutrophils (%) (Auto) 84.1H, Lymphocytes (%) (Auto) 7.4L, Monocytes (%) (Auto) 8.1, Eosinophils (%) (Auto) 0.0, Basophils (%) (Auto) 0.3 09/24/20 05:49: White Blood Count 10.4, Red Blood Count 4.38L, Hemoglobin 13.2L, Hematocrit 41.4L, Mean Corpuscular Volume 95, Mean Corpuscular Hemoglobin 30.1, Mean Corpuscular Hemoglobin Concent 31.8L, Red Cell Distribution Width 14.8, Platelet Count 260, Mean Platelet Volume 7.4, Neutrophils (%) (Auto) 76.1H, Lymphocytes (%) (Auto) 11.5L, Monocytes (%) (Auto) 12.0H, Eosinophils (%) (Auto) 0.0, Basophils (%) (Auto) 0.4, Sodium Level 143, Potassium Level 5.0, Chloride Level 107, Carbon Dioxide Level 30, Anion Gap 6, Blood Urea Nitrogen 23H, Creatinine 1.4H, Estimat Glomerular Filtration Rate 54.1, Glucose Level 144H, Calcium Level 8.7 Plan: Patient seen with nurse Hilario. A+O x 3. SPARKS x 4. No SOB / CP. Pleasant demeanor. Hemovac drain output > 250 cc over the past shift. Pain level 7 / 10 on the visual-analog pain scale. Left leg pain, but pt feels improved compared to preop. MAR medication list reviewed. SQ dilaudid working well; use po norco also once diet started. Advancing diet tolerated without emesis. GI: +BS No flatus No BM Keep NPO after ALIF. Await flatus. + burping Encourage incentive spirometer usage. Encourage advancing ambulation with physical therapy as tolerated. SCDs for mechanical prophylaxis against deep venous thrombosis and PEs. Discussed discharge planning with RNs to help expedite hospital discharge. Rx left for #60 [place] for outpatient pain medication usage; to p/u Rx and dropoff at outpt pharmacy [facility]. Lam Cbua MD Sep 24, 2020 12:38
--- NOTE | 2020-09-24 12:52 | 48 Hour Post Anesthesia Eval ---
Post Anesthesia Evaluation Procedure: Anterior L3to S1 discectomy fusion with posterior L3 to S1 fusion and deco Date of Evaluation: Sep 24, 2020 Time of Evaluation: 12:51 Blood Pressure Systolic: 156 0: 80 Pulse Rate: 88 Respiratory Rate: 16 Temperature (Fahrenheit): 97.8 O2 Sat by Pulse Oximetry: 99 Airway: patent Nausea: No Vomiting: No Pain Intensity: 3 Hydration Status: adequate Cardiopulmonary Status: Stable Mental Status/LOC: patient returned to baseline Follow-up Care/Observations: 0 Post-Anesthesia Complications: 0 Follow-up care needed: N/A Dimas Cash MD Sep 24, 2020 12:52
--- NOTE | 2020-09-24 17:00 | Consultation ---
DATE OF CONSULTATION: 09/23/2020 CONSULTING PHYSICIAN: Lam Cuba MD. REFERRING PHYSICIAN: Hao Greene MD. REASON FOR CONSULTATION: Acute pain consult. HISTORY OF PRESENT ILLNESS: Dear Dr. Hao Greene, Thank you kindly for consulting me to evaluate and render an opinion as to how to proceed in the management of the patient's acute postoperative lumbar spine pain after extensive anterior-approach and posterior-approach lumbar spine fusion surgery with instrumentation. The patient is a pleasant 50-year-old gentleman, who works in a [employer], who injured his lumbar spine in a work-related injury. Today, he required an extensive lumbar spine fusion surgery and instrumentation. You consulted me to help with his postoperative pain control and care. I saw the patient at the bedside. I performed detailed history and physical examination. I discussed the case with the recovery room nurse [facility] with [facility]. I performed detailed history and physical examination. I spent over 75 minutes in consultation with an additional 30 minutes in medical record review. Multiple records were reviewed including utilization review and surgical authorization for lumbar spine fusion surgery with instrumentation, the hospital stay by metadata, certifying procedure as authorized. Further records reviewed include preoperative history and physical by Dr. Maxwell Nobles, September 18, 2020 including diagnostic testing. Multiple records reviewed from today's date of surgery at [facility], September 23, 2020 including consent for surgical treatment, consent for anesthesia, consent for blood products, medication administration record, medication reconciliation order form, PACU record, PACU orders, anesthesia record, pre-anesthesia and post-anesthesia evaluation record, implant log, guidelines for prophylactic antibiotics, guidelines for DVT prophylaxis, initial nursing assessment, 24-hour medical surgical flow sheet, postoperative surgery report, postoperative spine surgical orders by Dr. Greene. Child-Samson diagram for cognitive disability, surgical invasive procedure check list. PAST MEDICAL HISTORY: 1. Acute postoperative lumbar spine pain, status post lumbar spine fusion surgery with instrumentation by Dr. Hao Greene, September 23, 2020. 2. Work-related injury. 3. Obesity. 4. Diabetes. 5. Hypertension. 6. Hypercholesterolemia. PAST SURGICAL HISTORY: Previous cervical spine and lumbar spine surgery 2014 and bilateral knee arthroscopies. ALLERGIES: No known drug allergies. MEDICATIONS: At home, metformin, lisinopril, Jardiance, fenofibric acid pills. SOCIAL HISTORY: The patient denies tobacco or marijuana usage. He drinks alcohol rarely. He lives at home with his . REVIEW OF SYSTEMS: Per attending physician. PHYSICAL EXAMINATION: VITAL SIGNS: Age 50, height 5 feet 8 inches, weight over 200 pounds. Vital signs in the medical record. HEENT: Normocephalic and atraumatic. Moving all extremities x4. NEUROLOGIC: Detailed neurologic exam deferred to Dr. Greene. There was significant pain in the left lower quadrant by the incision along with pain in the left hip and left lower extremity approximately. Pain with log-rolling. Wound dressing appears clean and dry with Hemovac drain holding suction. CHEST: Clear to auscultation. HEART: Regular rate and rhythm. ABDOMEN: Absent bowel sounds after ALIF surgery. No rebound or guarding, but tender by incision area. Chisholm catheter in place. GENITOURINARY: Deferred. DIAGNOSTIC TESTING: From September 19, 2020 shows INR 1.1, PTT 32. Urinalysis, negative. Sodium 139, potassium 4.2, glucose 99, chloride 100, bicarb 30, BUN 17, creatinine 0.9, calcium 9.0, total protein 7.7. Albumin 4.8, alkaline phosphatase 32, AST 30, ALT 30. Total bilirubin 0.6. White count 7, hematocrit 42, platelets 300. Glucose 99, sodium 139, potassium 4.2, chloride 100, bicarb 30, creatinine 0.9. Preoperative 12-lead EKG shows heart rate 70, dated September 19, 2020. Normal sinus rhythm. MRI lumbar spine dated January 09, 2020. Impression, L4-L5 with a 6 mm diffuse broad-based disc bulge associated with annular fissuring tear. An 8 mm left lateral disc protrusion at L2-L3 superimposed on a 5 mm broad-based central disc bulge. A 2 mm anterolisthesis of L3 and L4 with a 12 mm broad-based disc protrusion. IMPRESSION: 1. Acute postoperative lumbar spine pain, status post lumbar spine fusion surgery with instrumentation by Dr. Hao Greene, September 23, 2020. 2. Work-related injury. 3. Obesity. 4. Diabetes. 5. Hypertension. 6. Hypercholesterolemia. RECOMMENDATIONS: I have devised the following analgesic plan to help with this patient's pain control postoperatively. I started him on two different doses of Dilaudid starting with 0.5 mg intravenously every three hours p.r.n. for moderate pain. I have ordered a double dose of Dilaudid 1 mg subcutaneously every three hours p.r.n. for more severe pain. Once the patient is able to tolerate his diet, I was work-in hydrocodone 10/325 tablets. This [place] dose has been well tolerated after his previous spinal surgeries back in 2014. The patient does not appear anxious and I would avoid the class of benzodiazepines at this time, while concentrating on the MU-opioid analgesics per primary analgesia. I will try to avoid the class of muscle relaxant as well as this may only exacerbate sedation without providing analgesia presently. The patient appears very motivated to begin ambulating. We will await for improvement in bowel function and bahai of GI motility after ALIF surgery before we begin to see the patient. He will be on IV fluids for intravascular rehydration. With his obesity, I will certainly recommend incentive spirometer to encourage good pulmonary toilet. Sequential compression pneumatic devices have been ordered for DVT prophylaxis. I will empirically place the patient on Pepcid 20 mg b.i.d. for GI ulcer prophylaxis. I will order a p.r.n. dose of Mylanta 30 mL q.6h. in case of any GERD symptom exacerbation. I will make available a dose of Benadryl 25 mg orally every 6 hours in case of any postoperative itching complaints. I have asked the nursing team to place a Chloraseptic spray at the bedside in case of any postoperative sore throat complaints. I will order Zofran as a rescue antiemetic at a dose of 4 mg intravenously every 4 hours p.r.n. At the time of discharge, the patient will need a prescription for outpatient pain medications. Lam Cuba M.D. DR: ELISE JOB#: [id number] CC:
--- NOTE | 2020-09-24 18:18 | Orthopedic Spine Progress Note ---
Ortho Spine - Progress Note Subjective Symptoms: c/o post-op back pain, c/o left leg pain - thigh pain/cramping, improved - as compared to pre-op Objective Vital Signs: Last 24 Hour Vital Signs Date Time Temp Pulse Resp B/P (MAP) Pulse Ox O2 Delivery O2 Flow Rate FiO2 09/24/20 16:13 97.8 09/24/20 12:52 88 16 99 09/24/20 11:46 97.6 09/24/20 09:19 97.6 09/24/20 04:00 97.6 88 16 156/80 (105) 99 09/24/20 03:00 97.9 93 16 123/81 (95) 99 09/24/20 02:00 98.0 93 18 121/83 (96) 99 09/24/20 01:00 98.0 94 18 120/81 (94) 98 09/24/20 00:00 98.2 93 16 128/78 (95) 97 09/23/20 22:55 98.0 94 16 127/78 (94) 98 09/23/20 22:25 98.0 89 16 126/71 (89) 98 09/23/20 21:55 98.1 89 16 126/71 (89) 99 09/23/20 21:40 98.1 89 16 127/70 (89) 98 09/23/20 21:25 98.0 88 16 125/70 (88) 99 09/23/20 21:10 98.1 99 16 135/71 (92) 97 09/23/20 20:58 97.9 94 12 129/66 99 Nasal Cannula 3 09/23/20 20:58 97.9 09/23/20 20:58 97.9 09/23/20 20:43 100 15 134/61 100 Nasal Cannula 3 09/23/20 20:28 106 15 135/52 99 Nasal Cannula 3 09/23/20 20:19 107 14 103/64 100 Simple Mask 6 09/23/20 20:09 114 15 114/56 100 Simple Mask 6 09/23/20 20:03 118 22 99 09/23/20 19:59 115 20 112/49 100 Simple Mask 6 09/23/20 19:54 118 17 113/58 98 Simple Mask 6 09/23/20 19:49 98.2 119 19 96/42 93 Simple Mask 6 I&O: l Intake and Output 09/23/20 09/24/20 19:00 07:00 Intake Total 0 ml 4000 ml Output Total 2345 ml Balance 0 ml 1655 ml Intake Oral 0 ml IV Total 4000 ml Output Urine Total 1750 ml Drainage Total 345 ml Estimated Blood Loss 250 ml # Voids 1 Wound: clean, intact Drains: hemovac Neuro Status: normal - x L thigh ant lat numbness lat fem cut nerve due pressure Assessment Procedure Performed: Ant Post Fusion L3-S1 with L5s1 redo decompression Plan Plan: PT, pain management, continue antibiotics - cont abx until after drain dc'd, continue drain Hao Greene MD Sep 24, 2020 18:18
--- NOTE | 2020-09-24 18:22 | NUR ---
NURSE NOTES: Received order from Dr. Greene to continue Ancef IV q8hrs until after hemovac is removed. Order read back and entered.
--- NOTE | 2020-09-24 19:30 | NUR ---
NURSE NOTES: Received report from Hilario DUQUE. Patient seen sitting at the chair, reporting 10/10 pain, offered to give dilaudid 1 mg sq for breakthrough pain. Patient refused and is requesting [place] instead. Educated patient on the risks and benefits, and offered additional pain medication if pain is not well managed
--- NOTE | 2020-09-24 19:30 | NUR ---
NURSE HAND-OFF: Important Events on Shift:[PT, dc paige catheter] Patient Status: stable Diet: NPO, cl liquid in the AM Pending Orders: Pending Results/Labs: Pending MD notification: Latest Vital Signs: Temperature 97.8 , Pulse 82 , B/P 124 /70 , Respiratory Rate 18 , O2 SAT 97 , Room Air, O2 Flow Rate 3 . Vital Sign Comment: stable Latest Ohara Fall Score: 35 Fall Risk: Medium Risk Safety Measures: Call light Within Reach, Bed Alarm Zone 1, Side Rails Side Rails x2, Bed position Low and Locked. Fall Precautions: Patient Fall Education Report given to Asim DUQUE.
[2020-09-24] MEDS: ceFAZolin sod 1 GM in D5W 55 ML IVPB SCH (21:12)
[2020-09-24] MEDS: Tamsulosin 0.4mg cap ORAL SCH (21:12)
[2020-09-25] VITALS: BP 128/68
--- NOTE | 2020-09-25 | NUR ---
NURSE NOTES: emptied 115 mL of serosanguineous red output. also voiding okay, 275 mL initially and 400 mLs
[2020-09-25 04:00] VITALS: BP 125/78
[2020-09-25] MEDS: HYDROmorphone 1mg/ml Carpuject SUBQ PRN ×5 (04:37→21:04)
[2020-09-25] MEDS: ceFAZolin sod 1 GM in D5W 55 ML IVPB SCH ×3 (05:23→21:04)
--- NOTE | 2020-09-25 05:40 | Pain Management Progress Note ---
Allergies: Coded Allergies: No Known Allergies (Unverified , 12/20/19) Vitals Vital Signs Date Time Temp Pulse Resp B/P (MAP) Pulse Ox O2 Delivery O2 Flow Rate FiO2 09/25/20 05:07 98.9 09/25/20 04:00 98.9 93 20 125/78 (94) 98 09/25/20 00:24 98.9 09/25/20 00:00 98.9 92 20 128/68 (88) 97 Medications Current Medications Acetaminophen (Tylenol) 650 mg Q4H PRN ORAL mild pain; Start 09/23/20 at 19:15; Stop 10/23/20 at 19:14 Acetaminophen (Tylenol) 650 mg Q6H PRN ORAL fever; Start 09/23/20 at 11:45; Stop 10/23/20 at 11:44 Acetaminophen/ Butalbital/ Caffeine (Fioricet) 1 tab Q8H PRN ORAL headache; Start 09/23/20 at 11:45; Stop 10/23/20 at 11:44 Acetaminophen/ Hydrocodone Bitart ([place] 10/325) 1 tab Q3H PRN ORAL Pain Scale (3-5) Last administered on 09/24/20at 19:43; Start 09/23/20 at 11:45; Stop 09/30/20 at 11:44 Al Hydroxide/Mg Hydroxide (Mylanta) 30 ml Q6H PRN ORAL gerd; Start 09/23/20 at 11:45; Stop 10/23/20 at 11:44 Cefazolin Sodium 1 gm/Dextrose 55 ml @ 110 mls/hr Q8HR IVPB Last administered on 09/25/20at 05:23; Start 09/24/20 at 22:00; Stop 10/01/20 at 21:59 Clonidine HCl (Catapres Tab) 0.1 mg Q8H PRN ORAL For High Blood Pressure; Start 09/23/20 at 11:45; Stop 12/22/20 at 11:44 Diphenhydramine HCl (Benadryl) 25 mg Q6H PRN ORAL Itching/insomnia; Start 09/23/20 at 11:45; Stop 10/23/20 at 11:44 Docusate Sodium (Colace) 100 mg TWICE A DAY ORAL Last administered on 09/24/20at 18:09; Start 09/24/20 at 09:00; Stop 10/24/20 at 08:59 Famotidine (Pepcid) 20 mg BID ORAL Last administered on 09/24/20at 18:09; Start 09/23/20 at 18:00; Stop 12/22/20 at 17:59 Hydromorphone HCl (Dilaudid) 0.5 mg Q3H PRN IVP Moderate Pain (Pain Scale 4-6); Start 09/23/20 at 11:45; Stop 09/30/20 at 11:44 Hydromorphone HCl (Dilaudid) 1 mg Q3H PRN SUBQ Severe Breakthru Pain (>7) Last administered on 09/25/20at 04:37; Start 09/23/20 at 11:45; Stop 09/30/20 at 11:44 Ondansetron HCl (Zofran) 4 mg Q4H PRN IVP Nausea & Vomiting; Start 09/23/20 at 11:45; Stop 10/23/20 at 11:44 Phenol/Menthol (Chloraseptic) 1 spray Q2HR PRN ORAL sore throat Last administered on 09/23/20at 21:33; Start 09/23/20 at 11:45; Stop 12/22/20 at 11:44 Sodium Chloride 1,000 ml @ 150 mls/hr Q6H40M IV Last administered on 09/25/20at 00:17; Start 09/24/20 at 12:45; Stop 10/24/20 at 12:44 Tamsulosin HCl (Flomax) 0.4 mg BEDTIME ORAL Last administered on 09/24/20at 21:12; Start 09/23/20 at 21:00; Stop 10/23/20 at 20:59 Laboratory Laboratory Tests 09/24/20 05:49: White Blood Count 10.4, Red Blood Count 4.38L, Hemoglobin 13.2L, Hematocrit 41.4L, Mean Corpuscular Volume 95, Mean Corpuscular Hemoglobin 30.1, Mean Corpuscular Hemoglobin Concent 31.8L, Red Cell Distribution Width 14.8, Platelet Count 260, Mean Platelet Volume 7.4, Neutrophils (%) (Auto) 76.1H, Lymphocytes (%) (Auto) 11.5L, Monocytes (%) (Auto) 12.0H, Eosinophils (%) (Auto) 0.0, Basophils (%) (Auto) 0.4, Sodium Level 143, Potassium Level 5.0, Chloride Level 107, Carbon Dioxide Level 30, Anion Gap 6, Blood Urea Nitrogen 23H, Creatinine 1.4H, Estimat Glomerular Filtration Rate 54.1, Glucose Level 144H, Calcium Level 8.7 Plan: Patient seen with nurse Angel. Rocha, progressing well after extensive fusion surgery 2 days ago. Hemovac drain output > 150 cc over the past shift. Continue drain in-place for now, and continue abx with drain in-place, per surgeon. Pain level 6 / 10 on the visual-analog pain scale. Dr Greene aware of left hip/thigh pain, which pt feels is improved compared to yesterday. Voiding urine well after paige d/c'd. One-time dose of flomax yesterday was effective. I DIScouraged pt from using bedside urinal, and recommended out of bed to use bathroom. Pt will try to comply. MAR medication list reviewed. Continue SQ dilaudid + po norco prn. Pain control adequate, and I ENcouraged pt request pain meds to effect good incentive spirometer effort. Continue incentive spirometer usage. GI: +BS + flatus No BM after ALIF. On colace BID. Will start clears this morning, as + flatus. Encourage advancing ambulation with physical therapy as tolerated. SCDs for mechanical prophylaxis against deep venous thrombosis and PEs. A+O x 3. SPARKS x 4. No SOB / CP. Pleasant demeanor. Rx provided for #60 [place] for outpatient pain medication usage. pickedup Rx yesterday, and will dropoff at outpt pharmacy this morning. Lam Cuba MD Sep 25, 2020 05:40
--- NOTE | 2020-09-25 06:28 | NUR ---
NURSE HAND-OFF: Important Events on Shift: Emptied total of 190 mL of serosanguinous liquid in the hemovac, patient requested norco x1, and dilaudid sq x2 for breakthrough pain, patient reported some gas and bowel sounds are heard upon assessment. Dr Cuba aware. Fluids decreased to 100 mL Patient Status: stable Diet:clear liquid diet Pending Orders: [] Pending Results/Labs:[] Pending MD notification:[] Latest Vital Signs: Temperature 98.9 , Pulse 93 , B/P 125 /78 , Respiratory Rate 20 , O2 SAT 98 , Room Air, O2 Flow Rate 3 . Vital Sign Comment: [] Latest Ohara Fall Score: 35 Fall Risk: Medium Risk Safety Measures: Call light Within Reach, Bed Alarm Zone 1, Side Rails Side Rails x2, Bed position Low and Locked. Fall Precautions: Patient Fall Education Report given to Hilario DUQUE
--- NOTE | 2020-09-25 07:33 | NUR ---
NURSE NOTES: Report given to Hilario DUQUE
[2020-09-25 08:00] VITALS: BP 115/81
[2020-09-25] MEDS: Docusate 100mg cap ORAL SCH ×2 (09:00→17:10)
[2020-09-25 12:00] VITALS: BP 148/82
[2020-09-25 16:00] VITALS: BP 134/67
--- NOTE | 2020-09-25 16:26 | Orthopedic Spine Progress Note ---
Ortho Spine - Progress Note Subjective Symptoms: c/o post-op back pain, c/o left leg pain - improving compared to yesterday, improved - as compared to pre-op Objective Vital Signs: Last 24 Hour Vital Signs Date Time Temp Pulse Resp B/P (MAP) Pulse Ox O2 Delivery O2 Flow Rate FiO2 09/25/20 12:57 98.9 09/25/20 12:00 97.9 97 18 148/82 (104) 98 09/25/20 09:34 98.9 09/25/20 09:00 Room Air 09/25/20 08:00 98.1 117 20 115/81 (92) 95 09/25/20 05:07 98.9 09/25/20 04:00 98.9 93 20 125/78 (94) 98 09/25/20 00:24 98.9 09/25/20 00:00 98.9 92 20 128/68 (88) 97 09/24/20 21:00 Room Air 09/24/20 20:13 97.5 09/24/20 20:02 97.5 100 20 127/76 (93) 100 I&O: Intake and Output 0 09/24/20 09/25/20 19:00 07:00 Intake Total 1200 ml Output Total 1690 ml Balance -490 ml IV Total 1200 ml Output Urine Total 1500 ml Drainage Total 190 ml Wound: clean, intact Drains: hemovac Neuro Status: stable - LLE improving Assessment Procedure Performed: Ant Post Fusion L3-S1 with L5s1 redo decompression Plan Plan: PT, pain management, continue antibiotics, continue drain Additional Comments: CT Reviewed-- hardware/implants in good position Hao Greene MD Sep 25, 2020 16:26
--- NOTE | 2020-09-25 16:47 | Diagnostic Imaging Report ---
EXAM: CT Lumbar Spine Without Intravenous Contrast CLINICAL HISTORY: WEAK TECHNIQUE: Axial computed tomography images of the lumbar spine without intravenous contrast. Sagittal and coronal reformatted images were created and reviewed. CTDI is 17.4 mGy and DLP is 609.2 mGy-cm. One or more of the following dose reduction techniques were used: automated exposure control, adjustment of the mA and/or kV according to patient size, use of iterative reconstruction technique. COMPARISON: Lumbar spine x-rays dated 09/23/20 FINDINGS: Vertebrae: Posterior and anterior lumbar spinal fixation spanning L3- S1 with intervertebral disc cages and laminectomies. Hardware appears intact. Expected alignment. No visible fracture or subluxation in the lumbar spine. Discs/spinal canal/neural foramina: No significant disc space narrowing. No osseous spinal canal or neural foraminal stenosis. Soft tissues: Mild anterior paravertebral soft tissue stranding extending to the left pelvic sidewall with scattered foci of intraperitoneal air. Adrenals: 1.5 cm right adrenal nodule with density of 21 Hounsfield units, too dense to classify as a simple adenoma. IMPRESSION: 1. Posterior and anterior lumbar spinal fixation spanning L3-S1 with intervertebral disc cages and laminectomies. Hardware appears intact. Expected alignment. 2. No visible fracture or subluxation in the lumbar spine. 3. Mild anterior paravertebral soft tissue stranding extending to the left pelvic sidewall with scattered foci of intraperitoneal air. This is most likely related to recent post surgical change. . 4. 1.5 cm right adrenal nodule with density of 21 Hounsfield units, too dense to classify as a simple adenoma. ACR White Paper guidelines (Nika, et al. JACR 2010; 7(10):756-21) suggest follow-up abdominal CT or MR in 12 months. Alternatively, if there is a history of malignancy, consider further evaluation with PET, unenhanced abdominal CT or MR.
--- NOTE | 2020-09-25 19:15 | NUR ---
NURSE NOTES: received pt and report from NETO Rich. pt alert and oriented x 4 with no acute s/s of distress. pt with pain, will administer medication when due. hemovac noted and draining. surgical dressing clean dry and intact. IV site clean dry and intact and running fluids as ordered.
--- NOTE | 2020-09-25 19:30 | NUR ---
NURSE HAND-OFF: Important Events on Shift:[none] Patient Status: stable Diet: cl liquid Pending Orders: Pending Results/Labs: Pending MD notification: Latest Vital Signs: Temperature 98.9 , Pulse 94 , B/P 134 /67 , Respiratory Rate 18 , O2 SAT 97 , Room Air, O2 Flow Rate 3 . Vital Sign Comment: stable Latest [place] Fall Score: 35 Fall Risk: Medium Risk Safety Measures: Call light Within Reach, Bed Alarm Zone 1, Side Rails Side Rails x2, Bed position Low and Locked. Fall Precautions: Patient Fall Education Report given to roldan DUQUE.
[2020-09-25 20:00] VITALS: BP 144/77
[2020-09-25] MEDS: Tamsulosin 0.4mg cap ORAL SCH (20:20)
[2020-09-26] VITALS (7 sets, daily range): BP systolic 118–140; BP diastolic 64–77
--- NOTE | 2020-09-26 00:10 | NUR ---
NURSE NOTES: pt vital signs stable, he is in no distress but he states co pain 10/10. will administer pain medication when due. offered pt [place] but pt refused, he believes his bouts of tachycardia are due to the [place], he prefers the PRN dilaudid for his pain relief.
[2020-09-26] MEDS: HYDROmorphone 1mg/ml Carpuject SUBQ PRN ×4 (00:44→11:33)
--- NOTE | 2020-09-26 04:20 | NUR ---
NURSE NOTES: pt vital signs stable, he is in no acute distress. he has co pain. pain medication administered. will reassess.
[2020-09-26] MEDS: ceFAZolin sod 1 GM in D5W 55 ML IVPB SCH (05:24)
--- NOTE | 2020-09-26 05:45 | NUR ---
NURSE NOTES: Dr. Cuba with pt. Hemovac removed. 4x4 gauze and island dressing 6x6 placed over surgical wound. no sign of infection. pt tolerated procedure well. last output from hemovac 60ml.
--- NOTE | 2020-09-26 06:14 | Pain Management Progress Note ---
Allergies: Coded Allergies: No Known Allergies (Unverified , 12/20/19) Vitals Vital Signs Date Time Temp Pulse Resp B/P (MAP) Pulse Ox O2 Delivery O2 Flow Rate FiO2 09/26/20 04:00 99.2 88 16 121/65 (83) 96 09/26/20 00:00 99.1 90 18 121/64 (83) 97 Medications Current Medications Acetaminophen (Tylenol) 650 mg Q6H PRN ORAL fever; Start 09/23/20 at 11:45; Stop 10/23/20 at 11:44 Acetaminophen/ Butalbital/ Caffeine (Fioricet) 1 tab Q8H PRN ORAL headache; Start 09/23/20 at 11:45; Stop 10/23/20 at 11:44 Acetaminophen/ Hydrocodone Bitart ([place] 10/325) 1 tab Q3H PRN ORAL Pain Scale (3-5) Last administered on 09/24/20at 19:43; Start 09/23/20 at 11:45; Stop 09/30/20 at 11:44 Al Hydroxide/Mg Hydroxide (Mylanta) 30 ml Q6H PRN ORAL gerd; Start 09/23/20 at 11:45; Stop 10/23/20 at 11:44 Cefazolin Sodium 1 gm/Dextrose 55 ml @ 110 mls/hr Q8HR IVPB Last administered on 09/26/20at 05:24; Start 09/24/20 at 22:00; Stop 10/01/20 at 21:59 Clonidine HCl (Catapres Tab) 0.1 mg Q8H PRN ORAL For High Blood Pressure; Start 09/23/20 at 11:45; Stop 12/22/20 at 11:44 Diphenhydramine HCl (Benadryl) 25 mg Q6H PRN ORAL Itching/insomnia; Start 1 11/23/19 at 11:45; Stop 10/23/20 at 11:44 Docusate Sodium (Colace) 100 mg TWICE A DAY ORAL Last administered on 09/24/20at 18:09; Start 09/24/20 at 09:00; Stop 10/24/20 at 08:59 Famotidine (Pepcid) 20 mg BID ORAL Last administered on 09/25/20at 17:06; Start 09/23/20 at 18:00; Stop 12/22/20 at 17:59 Hydromorphone HCl (Dilaudid) 0.5 mg Q3H PRN IVP Moderate Pain (Pain Scale 4-6); Start 09/23/20 at 11:45; Stop 09/30/20 at 11:44 Hydromorphone HCl (Dilaudid) 1 mg Q3H PRN SUBQ Severe Breakthru Pain (>7) Last administered on 09/26/20at 04:20; Start 09/23/20 at 11:45; Stop 09/30/20 at 11:44 Ondansetron HCl (Zofran) 4 mg Q4H PRN IVP Nausea & Vomiting; Start 09/23/20 at 11:45; Stop 10/23/20 at 11:44 Phenol/Menthol (Chloraseptic) 1 spray Q2HR PRN ORAL sore throat Last administered on 09/23/20at 21:33; Start 09/23/20 at 11:45; Stop 12/22/20 at 11:44 Sodium Chloride 1,000 ml @ 100 mls/hr Q10H IV Last administered on 09/26/20at 05:23; Start 09/24/20 at 12:45; Stop 10/24/20 at 12:44 Tamsulosin HCl (Flomax) 0.4 mg BEDTIME ORAL Last administered on 09/25/20at 20:20; Start 09/23/20 at 21:00; Stop 10/23/20 at 20:59 Plan: Patient seen with nurse Cobos. Ningall, progressing well after extensive fusion surgery [address] spine shows good alignment; surgeon pleased with CT results. A+O x 3. SPARKS x 4. No SOB / CP. Good spirits. Pain level 5 / 10 on the visual-analog pain scale. Left hip/thigh pain continues to mprove, compared to yesterday. MAR medication list reviewed. Continue SQ dilaudid + po norco prn. Pain control adequate, and I ENcouraged pt request pain meds to effect good incentive spirometer effort. Compliant incentive spirometer usage. GI: +BS + flatus Multiple BMs after ALIF. Will d/c colace BID. Tolerating clears yesterday. Will trial soft diet this morning, then advance to 1999 ADA diet for lunch. Start accuchecks in diabetic patient. Continue advancing ambulation with physical therapy as tolerated. With good oral intake, will d/c IV fluids & heplock IV to encourage OOB. SCDs for mechanical prophylaxis against deep venous thrombosis and PEs. picked-up #60 [place] Rx already from outpt pharmacy on . Dr Greene expects d/c home tomorrow on Tuesday to . Will d/c abx after lumbar spine drain removed this morning, per surgeon. Hemovac drain output 60 cc over the past shift. With the RN at bedside, wound site dressing removed sterilely. Suture line appears dry and intact with [place]-sealant intact.. No erythema or exudate noted. At end-expiration, with the hemovac drain taken [id number], I personally removed the indwelling lumbar spine drain catheter sterilely. Tip intact. Drain hole & incision-line swabbed with alcohol. Dressing with sterile gauze & bandages. No complications. Lam Cuba MD Sep 26, 2020 06:14
--- NOTE | 2020-09-26 07:37 | NUR ---
NURSE HAND-OFF: Important Events on Shift:pain management, Hemovac removed Patient Status: stable Diet: breakfast mechanical soft, lunch (consistent carb) Pending Orders: NA Pending Results/Labs:NA Pending MD notification:NA Latest Vital Signs: Temperature 99.2 , Pulse 88 , B/P 121 /65 , Respiratory Rate 16 , O2 SAT 96 , Room Air, O2 Flow Rate 3 . Vital Sign Comment: stable through the shift Latest [place] Fall Score: 35 Fall Risk: Medium Risk Safety Measures: Call light Within Reach, Bed Alarm Zone 1, Side Rails Side Rails x2, Bed position Low and Locked. Fall Precautions: Patient Fall Education Report given to Shazia Ramirez RN.
--- NOTE | 2020-09-26 07:40 | NUR ---
NURSE NOTES: Received report from NETO Cobos. Rounding done with outgoing nurse. Pt a/o x 4, in bed. NO SOB noted. Pt c/o pain as 04/16. SCD is on. Lt hand IV access is in placed. Bed in lowest position, call light within reach. Will continue to monitor.
--- NOTE | 2020-09-26 14:24 | NUR ---
CASE MANAGEMENT:REVIEW 09/26/20 SI: POD #3 S/P SPINAL FUSION AND LAMINECTOMY 97.4 95 16 136/75 98% ON RA IS: IV ANCEF Q8HRS PEPCID PO BID DILAUDID SQ Q3HRS PRN : MED/SURG STATUS 3 EAST DCP: FROM HOME PLAN: SOFT DIET AMBULATING 250FT
--- NOTE | 2020-09-26 14:42 | Diagnostic Imaging Report ---
CLINICAL HISTORY: Back pain. Fluoroscopic imaging from spinal surgery. COMPARISON: None FINDINGS: Fluoroscopy independent procedure performed for spinal surgery. 70.9 seconds of fluoroscopy time utilized by the ordering physician. Total cumulative dose is 46.71 mGy and 1.05 mGy*m2. Total of 18 spot images are obtained showing multilevel fusion. IMPRESSION: FLUOROSCOPIC IMAGING FROM SPINAL SURGERY. PLEASE SEE OPERATIVE REPORT.
[2020-09-26] MEDS: HYDROcodone/Acetamin 10/325 tab ORAL PRN ×3 (17:33→23:47)
--- NOTE | 2020-09-26 17:48 | Orthopedic Spine Progress Note ---
Ortho Spine - Progress Note Subjective Symptoms: c/o post-op back pain, improved - as compared to pre-op Objective Vital Signs: Last 24 Hour Vital Signs Date Time Temp Pulse Resp B/P (MAP) Pulse Ox O2 Delivery O2 Flow Rate FiO2 09/26/20 16:00 99.0 82 17 122/67 (85) 96 09/26/20 12:00 99.0 89 18 140/77 (98) 98 09/26/20 09:00 Room Air 09/26/20 08:00 97.4 95 16 136/75 (95) 98 09/26/20 04:00 99.2 88 16 121/65 (83) 96 09/26/20 00:00 99.1 90 18 121/64 (83) 97 09/25/20 21:00 Room Air 09/25/20 20:00 97.5 90 16 144/77 (99) 99 I&O: Intake and Output 09/25/20 09/26/20 19:00 07:00 Intake Total 1500 ml Output Total 980 ml 1260 ml Balance -980 ml 240 ml Intake Oral 800 ml IV Total 700 ml Output Urine Total 900 ml 1200 ml Drainage Total 80 ml 60 ml # Voids 4 Wound: clean, intact Drains: none Assessment Procedure Performed: Ant Post Fusion L3-S1 with L5s1 redo decompression Plan Plan: PT, d/c antibiotics, d/c drain, discharge plan Hao Greene MD Sep 26, 2020 17:48
--- NOTE | 2020-09-26 18:54 | NUR ---
NURSE NOTES: Dr. Greene came and saw pt. MD ordered discharge tomorrow and change dressing for back site with 4x4 and tegaderm before d/c. Noted and carried out.
--- NOTE | 2020-09-26 18:56 | NUR ---
NURSE HAND-OFF: Important Events on Shift: Patient Status: stable Diet: CCHO(M) Pending Orders: N/A Pending Results/Labs:N/A Pending MD notification:N/A Latest Vital Signs: Temperature 99.0 , Pulse 82 , B/P 122 /67 , Respiratory Rate 17 , O2 SAT 96 , Room Air, O2 Flow Rate 3 . Vital Sign Comment: stable Latest [place] Fall Score: 35 Fall Risk: Medium Risk Safety Measures: Call light Within Reach, Bed Alarm Zone 1, Side Rails Side Rails x2, Bed position Low and Locked. Fall Precautions: Patient Fall Education Report given to NETO Cobos.
--- NOTE | 2020-09-26 19:15 | NUR ---
NURSE NOTES: received pt and report from NETO Ramirez. pt alert and oriented x 4 with no acute distress and with co pain. will give med when due. pt IV site hep locked, clean dry and intact. surgical dressing on back clean dry and intact.
--- NOTE | 2020-09-27 00:27 | NUR ---
NURSE NOTES: pt vital signs stable, no acute s/s of distress. He has pain. pain medication given. pt now asleep wo co pain
[2020-09-27 04:00] VITALS: BP 118/69
[2020-09-27] MEDS: HYDROcodone/Acetamin 10/325 tab ORAL PRN ×2 (04:07→08:21)
--- NOTE | 2020-09-27 04:30 | NUR ---
NURSE NOTES: pt vital signs stable. he was given pain medication, no acute s/s of distress.
--- NOTE | 2020-09-27 05:30 | NUR ---
NURSE NOTES: pts blood glucose at 79, he verbalized feeling a bit woozy. I helped him to his bedside chair after he provided self oral care. I provided him with orange juice and cranberry juice and instructed him to finish it.
--- NOTE | 2020-09-27 06:05 | NUR ---
NURSE NOTES: pt verbalizes feeling better after drinking orange and cranberry juice. he no longer feels woozy or dizzy.
--- NOTE | 2020-09-27 06:32 | NUR ---
NURSE NOTES: pt verbalized that he wanted to have his dressing changed about 1 hour before he is discharged so that it is fresh. I will endorse to day shift nurse pts request.
--- NOTE | 2020-09-27 06:59 | Pain Management Progress Note ---
Allergies: Coded Allergies: No Known Allergies (Unverified , 12/20/19) Vitals Vital Signs Date Time Temp Pulse Resp B/P (MAP) Pulse Ox O2 Delivery O2 Flow Rate FiO2 09/27/20 04:00 98.7 77 17 118/69 (85) 96 09/26/20 23:57 98.9 84 15 121/67 (85) 97 Medications Current Medications Acetaminophen (Tylenol) 650 mg Q6H PRN ORAL fever; Start 09/23/20 at 11:45; Stop 10/23/20 at 11:44 Acetaminophen/ Hydrocodone Bitart ([place] 10/325) 1 tab Q3H PRN ORAL Pain Scale (3-5) Last administered on 09/27/20at 04:07; Start 09/23/20 at 11:45; Stop 09/30/20 at 11:44 Al Hydroxide/Mg Hydroxide (Mylanta) 30 ml Q6H PRN ORAL gerd; Start 09/23/20 at 11:45; Stop 10/23/20 at 11:44 Clonidine HCl (Catapres Tab) 0.1 mg Q8H PRN ORAL For High Blood Pressure; Start 09/23/20 at 11:45; Stop 12/22/20 at 11:44 Diphenhydramine HCl (Benadryl) 25 mg Q6H PRN ORAL Itching/insomnia; Start 09/23/20 at 11:45; Stop 10/23/20 at 11:44 Famotidine (Pepcid) 20 mg BID ORAL Last administered on 09/26/20at 17:33; Start 09/23/20 at 18:00; Stop 12/22/20 at 17:59 Hydromorphone HCl (Dilaudid) 0.5 mg Q3H PRN IVP Moderate Pain (Pain Scale 4-6); Start 09/23/20 at 11:45; Stop 09/30/20 at 11:44 Hydromorphone HCl (Dilaudid) 1 mg Q3H PRN SUBQ Severe Breakthru Pain (>7) Last administered on 09/26/20at 11:33; Start 09/23/20 at 11:45; Stop 09/30/20 at 11:44 Ondansetron HCl (Zofran) 4 mg Q4H PRN IVP Nausea & Vomiting; Start 09/23/20 at 11:45; Stop 10/23/20 at 11:44 Laboratory Laboratory Tests 09/26/20 11:37: POC Whole Blood Glucose 81 09/26/20 16:48: POC Whole Blood Glucose 79 09/26/20 20:32: POC Whole Blood Glucose 94 09/27/20 05:35: POC Whole Blood Glucose 79 Plan: Patient seen with nurse Papito. Wound dressing clean & dry. Discussed with surgeon Dr. Greene in-detail. Sitting in-chair. Advancing ambulation well; wearing back brace when out of bed. Compliant incentive spirometer usage. A+O x 3. SPARKS x 4. No SOB / CP. Good spirits. Pain level 4 / 10 on the visual-analog pain scale. MAR medication list reviewed. Will wean-off prn SQ dilaudid + continue po norco prn. Pain control adequate. GI: +BS + flatus Multiple BMs after ALIF. Will d/c colace BID. Tolerating advanced diet 1999 ADA diet. Accuchecks wnl in diabetic patient. picked-up #60 [place] Rx already from outpt pharmacy on . Dr Greene ordered d/c home later this Tuesday am to . Pt agrees with discharge plan. Pt will f/u with Dr. Greene in outpt surgical clinic within 2 weeks. Lam Cuba MD Sep 27, 2020 06:58
--- NOTE | 2020-09-27 07:36 | NUR ---
NURSE HAND-OFF: Important Events on Shift: pain management Patient Status: stable Diet: consistent carb Pending Orders: discharge at 10am Pending Results/Labs: NA Pending MD notification:NA Latest Vital Signs: Temperature 98.7 , Pulse 77 , B/P 118 /69 , Respiratory Rate 17 , O2 SAT 96 , Room Air, O2 Flow Rate 3 . Vital Sign Comment: stable through the shift Latest [place] Fall Score: 35 Fall Risk: Medium Risk Safety Measures: Call light Within Reach, Bed Alarm Zone 1, Side Rails Side Rails x2, Bed position Low and Locked. Fall Precautions: Patient Fall Education Report given to NETO Davis.
--- NOTE | 2020-09-27 07:45 | NUR ---
NURSE NOTES: Pt sitting in chair w/lumbar brace on and call light within reach. Pt A&Ox4, VSS, and in no apparent distress. IV site intact/asymptomatic & H/L'd and surgical dressings and C/D/I. Pt scheduled to be D/C'd home this morning. Will continue to monitor.
[2020-09-27 08:00] VITALS: BP 135/66
--- NOTE | 2020-09-27 10:15 | NUR ---
NURSE NOTES: Changed pt's anterior & posterior surgical dressings and provided some extra supplies to take home. Pt waiting for to arrive. Will continue to monitor.
--- NOTE | 2020-09-27 10:37 | NUR ---
NURSE NOTES: Removed pt's ID wristband and IV H/L. Pt escorted downstairs via w/c by [employer] MACHINE OPERATOR in stable condition and w/all belongings accounted for.
--- NOTE | 2020-09-30 13:21 | Discharge Summary ---
Discharge Summary Hospital Course Date of Admission Sep 23, 2020 at 06:59 Date of Discharge Sep 27, 2020 at 10:45 Admitting Diagnosis L3-S1 discopathy, deformity and stenosis Reason for Hospitalization: Elective surgery HPI Kyle Greer is a 50 year old male who was admitted on Sep 23, 2020 at 06:59 for L3-S1 discopathy, deformity and stenosis. Patient was admitted for elective surgery. Consultations Dr Cuba - pain specialist Procedures s/p 09/23/[address] Greene two step procedures 1. Wide and radical diskectomy through an anterior approach, L3-4, L4-5, L5-S1. 2. Interbody fusion using 4 WEB structural cage, L3-4, L4-5, L5-S1. 3. Use of local autograft. 4. Use of Signafuse bone graft substitute. 5. Anterior instrumentation with Fang plate at L3, L4, S1. 6. Use of fluoroscopy. 1. Segmental instrumentation using Choice spine cannulated pedicle screws at L3, L4, L5, S1 bilaterally. 2. Posterior spinal fusion, L3-L4, L4-L5, L5-S1. 3. Redo laminectomy, bilateral L5, and S1. 4. Neurolysis L5-S1. 5. Posterior lateral spinal fusion/facet fusion L3-L4, L4-L5, L5-S1 using autograft as well as Signafuse bone graft substitute. 6. Pedicle screw stimulation. 7. Use of fluoroscopy. 8. Use of operating microscope. Hospital Course status post surgery ( two step procedure ) course of recovery uneventful initially IV fluids s/p perioperative abx neurovascular status closely monitored, remained stable incision clean , dry and intact pain management was addressed pain specialist followed; pain was controlled remained hemodynamically stable ambulated with PT fall precautions maintained; safe for ambulation DVT prophylaxis provided use of incentive spirometry was encouraged while in the bed tolerated diet , IV fluids discontinued GI prophylaxis provided antiemetics were on board as needed blood pressure was managed with current regimen and remained stable blood sugar was closely monitored, stable required initiation of Flomax, voided freely afterwards bowel regimen instituted patient was stable for discharge discharge instructions provided follow up with surgeon in the office as advised FINAL DIAGNOSES L3-S1 discopathy, deformity and stenosis status post prior L3 through L5 decompression with discopathy L3 through S1. s/p Anterior and Posterior Fusion L3-S1 with L5S1 redo decompression Work-related injury. Obesity. Diabetes. Hypertension. Hypercholesterolemia. Discharge Medications Continued Medications: Aspirin* (Aspir 81*) 81 Mg Tablet.dr 81 MG ORAL DAILY for as prescribed, TAB Atorvastatin Calcium* (Atorvastatin Calcium*) 40 Mg Tablet 40 MG ORAL BEDTIME for hyperlipidemia, TAB [fenofibrate] () 1 TAB PO DAILY Fish Oil (Fish Oil 1,000 mg Capsule) 1 Each Capsule 1000 MG ORAL DAILY for supplement, CAP [Jardiance] () 25 MG PO DAILY Lisinopril* (Lisinopril*) 40 Mg Tablet 40 MG ORAL DAILY for HTN, TAB Metformin Hcl* (Metformin Hcl*) 1,000 Mg Tablet 1000 MG ORAL BID for DM, TAB Trazodone Hcl (Trazodone Hcl) 300 Mg Tablet 325 MG ORAL BEDTIME for as prescribed, TAB Discontinued Medications: Naproxen* (Naproxen*) 500 Mg Tablet 500 MG ORAL TWICE A DAY for as prescribed, TAB Discharge Condition Upon Discharge: stable Discharge Vital Signs Last Vital Signs Date Time Temp Pulse Resp B/P (MAP) Pulse Ox O2 Delivery O2 Flow Rate FiO2 09/27/20 09:00 Room Air 09/27/20 08:00 98.0 92 18 135/66 (89) 98 09/23/20 20:58 3 Discharge Disposition Patient was discharged home Discharge Instructions Discharge Instructions Special Instructions I have been assigned to complete a D/C Summary on this account. I was not involved in the patient management Brenda Frederick NP Sep 30, 2020 13:21
== END 2020-09-27 10:45 | disposition home or self-care (01) | DRG 455 ==
LOC: SDSOVERFLO 06:59 → 3E 21:56
PROC: 0SG1071 Fusion of 2 or more Lumbar Vertebral Joints with Autologous Tissue Substitute, Posterior Approach, Posterior Column, Open Approach (ICD-10-PCS; principal; 2020-09-23 09:00)
PROC: 0SG10J1 Fusion of 2 or more Lumbar Vertebral Joints with Synthetic Substitute, Posterior Approach, Posterior Column, Open Approach (ICD-10-PCS; principal; 2020-09-23 09:00)
PROC: 0SG10A0 Fusion of 2 or more Lumbar Vertebral Joints with Interbody Fusion Device, Anterior Approach, Anterior Column, Open Approach (ICD-10-PCS; principal; 2020-09-23 09:00)
PROC: 0ST20ZZ Resection of Lumbar Vertebral Disc, Open Approach (ICD-10-PCS; principal; 2020-09-23 09:00)
PROC: 01NB0ZZ Release Lumbar Nerve, Open Approach (ICD-10-PCS; principal; 2020-09-23 09:00)
PROC: 0ST40ZZ Resection of Lumbosacral Disc, Open Approach (ICD-10-PCS; principal; 2020-09-23 09:00)
PROC: 0SG3071 Fusion of Lumbosacral Joint with Autologous Tissue Substitute, Posterior Approach, Posterior Column, Open Approach (ICD-10-PCS; principal; 2020-09-23 09:00)
DX: M51.26 Other intervertebral disc displacement, lumbar region (principal); M48.07 Spinal stenosis, lumbosacral region; I10 Essential (primary) hypertension; G89.18 Other acute postprocedural pain; E11.9 Type 2 diabetes mellitus without complications; E66.9 Obesity, unspecified; E78.00 Pure hypercholesterolemia, unspecified
CPT/HCPCS: 36415; 72020; 72131; 76000; 80048; 82962; 85025; 86850; 86900; 86901; 87081; 94003; 94150; J2180; J2250; J2710; J7030; U0002